=== PATIENT | female | born 1955 | race Caucasian/White ===

== ENCOUNTER → 2023-07-12 | Outpatient (CLI) | payer MEDICARE ==
--- NOTE | 2023-07-12 18:52 | CA ---
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 Cardiac Hx: Technical Quality: Fair Contrast 1: Total Dose (mL): Contrast 2: Total Dose (mL): MEASUREMENTS (Male / Female) Normal Values 2D ECHO LV Diastolic Diameter PLAX 3.9 cm 4.2 - 5.9 / 3.9 - 5.3 cm LV Systolic Diameter PLAX 2.6 cm IVS Diastolic Thickness 0.7 cm 0.6 - 1.0 / 0.6 - 0.9 cm LVPW Diastolic Thickness 0.7 cm 0.6 - 1.0 / 0.6 - 0.9 cm LV Relative Wall Thickness 0.4 LVOT Diameter 2.0 cm Ascending Aorta Diameter 2.7 cm M-MODE Aortic Root Diameter MM 2.4 cm LA Systolic Diameter MM 2.7 cm LA Ao Ratio MM 1.1 AV Cusp Separation MM 1.8 cm DOPPLER AV Peak Velocity 144.7 cm/s AV Peak Gradient 8.4 mmHg AV Mean Velocity 89.8 cm/s AV Mean Gradient 3.7 mmHg AV Velocity Time Integral 25.3 cm LVOT Peak Velocity 107.2 cm/s LVOT Peak Gradient 4.6 mmHg LVOT Velocity Time Integral 21.9 cm LVOT Stroke Volume 68.3 cm??? LVOT Stroke Volume Index 44.1 ml/m??? LVOT Cardiac Index 3096.0 cm???/min???m??? AV Area Cont Eq vti 2.7 cm??? AV Area Cont Eq pk 2.3 cm??? Mitral E Point Velocity 58.3 cm/s Mitral A Point Velocity 67.5 cm/s Mitral E to A Ratio 0.9 MV Deceleration Time 342.0 ms LV E' Lateral Velocity 11.8 cm/s Mitral E to LV E' Lateral Ratio 4.9 LV E' Septal Velocity 9.6 cm/s Mitral E to LV E' Septal Ratio 6.1 TR Peak Velocity 200.3 cm/s TR Peak Gradient 16.0 mmHg Right Atrial Pressure 3.0 mmHg Pulmonary Artery Systolic Pressu 19.0 mmHg Right Ventricular Systolic Press 19.0 mmHg FINDINGS Left Ventricle Left ventricular wall thickness normal. Left ventricular cavity size normal. Low normal left ventricular systolic function with no obvious regional wall motion abnormalities. Left ventricular ejection fraction is estimated at 50- 55%. Right Ventricle Mild right ventricular dilatation. Right Atrium Normal right atrial size. Left Atrium Normal left atrial size. Mitral Valve Structurally normal mitral valve. Mitral valve thickened. No mitral regurgitation. Aortic Valve Trileaflet aortic valve. Mild aortic regurgitation. Tricuspid Valve Structurally normal tricuspid valve. Mild tricuspid regurgitation. Pulmonic Valve Structurally normal pulmonic valve. No pulmonic regurgitation. Pericardium No pericardial effusion. Aorta Normal size aortic root and proximal ascending aorta. CONCLUSIONS Normal LV size and wall thickness and systolic function. EF estimated at 55% No obvious regional wall motion abnormality No significant valvular dysfunction No significant chamber size abnormality No prior echocardiogram to compare with Previewed by: Dr Jorge Shankar (Electronically Signed) Final Date: 12 July 2023 18:51
== END | disposition home or self-care (01) ==
LOC: RADECHMAIN 08:20
PROVIDERS: ATTEND Family Medicine
DX: D15.1 Benign neoplasm of heart (principal); I08.2 Rheumatic disorders of both aortic and tricuspid valves; R53.1 Weakness
CPT/HCPCS: 93306